=== PATIENT | male | born 1970 | race Caucasian/White ===

== ENCOUNTER 2018-03-04 17:09 | Emergency (ER) | payer OTHER ==
[~2018-03-04] VITALS: Ht 175.3 cm; Wt 98.6 kg
[2018-03-04 17:31] VITALS: BP 175/110
[2018-03-04] MEDS ORDERED: PRED20TA PO (19:57)
[2018-03-04] MEDS ORDERED: LORA1TAB PO (19:58)
[2018-03-04] MEDS ORDERED: acetaminophen 325mg tablet PO ONE (20:00)
--- NOTE | 2018-03-04 20:21 | NUR ---
PT REFUSED SPLINT. DR BANGURA WAS INFORMED , PT HAS A SPLINT AT HOME HE WANTS TO USE .
== END 2018-03-04 20:44 | disposition home or self-care (01) ==
LOC: ER 17:10
DX: S62.316A Displaced fracture of base of fifth metacarpal bone, right hand, initial encounter for closed fracture (principal); D89.89 Other specified disorders involving the immune mechanism, not elsewhere classified; H02.846 Edema of left eye, unspecified eyelid; H02.843 Edema of right eye, unspecified eyelid; Z88.1 Allergy status to other antibiotic agents; W22.8XXA Striking against or struck by other objects, initial encounter; Y93.89 Activity, other specified; Y99.8 Other external cause status; Y92.89 Other specified places as the place of occurrence of the external cause
CPT/HCPCS: 73130; 99283

== ENCOUNTER 2018-04-26 17:50 | Emergency (ER) | payer OTHER ==
[~2018-04-26] VITALS: Ht 172.7 cm; Wt 68.0 kg
[2018-04-26 18:58] LABS: BASOPHILS % (AUTO) 0.3 % (0-1); EOSINOPHILS % (AUTO) 0.1 % (0-6); HEMATOCRIT 31.9 % (42.0-52.0); HEMOGLOBIN 10.3 g/dl (14.0-17.9); LYMPHOCYTES % (AUTO) 14.4 % (21-51); MEAN CORPUSCULAR HEMOGLOBIN 27.9 PG (27.0-31.0); MEAN CORPUSCULAR HGB CONC 32.4 g/dL (33.0-36.5); MEAN CORPUSCULAR VOLUME 86.1 FL (78-98); MEAN PLATELET VOLUME 7.6 FL (7.4-10.4); MONOCYTES # (AUTO) 0.4 X10'3 (0-0.9); MONOCYTES % (AUTO) 5.1 % (2-12); NEUTROPHILS # (AUTO) 5.7 X10'3 (1.8-7.7); NEUTROPHILS % (AUTO) 80.1 % (42-75); PLATELET COUNT 247 X10'3 (140-440); RED BLOOD COUNT 3.71 X10'6 (4.70-6.10); RED CELL DISTRIBUTION WIDTH 14.2 % (11.5-14.5); WHITE BLOOD COUNT 7.1 X10'3 (4.5-11.0)
[2018-04-26 19:35] LABS: ALANINE AMINOTRANSFERASE 23 U/L (12-78); ALBUMIN/GLOBULIN RATIO 0.8 (1.1-1.5); ALKALINE PHOSPHATASE 88 IU/L (46-116); ANION GAP 8 (8-16); ASPARTATE AMINO TRANSFERASE 17 U/L (10-37); BILIRUBIN,TOTAL 0.2 MG/DL (0.1-1.0); BLOOD UREA NITROGEN 16 MG/DL (7-18); BUN/CREATININE RATIO 15.1 (5.4-32.0); CALCIUM 8.7 MG/DL (8.5-10.1); CHLORIDE 103 MMOL/L (99-107); CREATININE 1.06 MG/DL (0.60-1.10); GLUCOSE 201 MG/DL (70-104); POTASSIUM 3.9 MMOL/L (3.5-5.1); SODIUM 139 MMOL/L (135-145); TOTAL CARBON DIOXIDE 28.1 MMOL/L (24-32); TOTAL PROTEIN 6.7 G/DL (6.4-8.2); eGFR 75 ML/MIN
[2018-04-26] MEDS ORDERED: iohexol 350MG/ML 100ml bottle IV ONE (19:45)
[2018-04-26] MEDS ORDERED: famotidine/PF 10 mg/ml inj IV ONE (20:50)
[2018-04-26] MEDS ORDERED: LORazepam 2 mg/ml vial IV ONE (21:05)
[2018-04-26] MEDS ORDERED: PRED5TAB PO (21:16)
[2018-04-26] MEDS ORDERED: GABA-532 PO (21:17)
[2018-04-26] MEDS ORDERED: MULT-1164 PO (21:18)
[2018-04-26] MEDS ORDERED: DICY10CA14 PO (21:21)
[2018-04-26] MEDS ORDERED: ONDA8TAB6 PO (21:22)
[2018-04-26] MEDS ORDERED: TRAZ-218 PO (21:23)
[2018-04-26 21:35] VITALS: BP 150/94
== END 2018-04-26 21:39 | disposition home or self-care (01) ==
LOC: ER 17:51
DX: K44.9 Diaphragmatic hernia without obstruction or gangrene (principal); K86.9 Disease of pancreas, unspecified; F12.90 Cannabis use, unspecified, uncomplicated; Z88.1 Allergy status to other antibiotic agents; Z79.899 Other long term (current) drug therapy
CPT/HCPCS: 36415; 71045; 71275; 80053; 83880; 84484; 85025; 85379; 93005; 96374; 96375; 99284; J2060; J3490; Q9967

== ENCOUNTER 2019-05-15 16:30 | Emergency (ER) | payer OTHER ==
[~2019-05-15] VITALS: Ht 175.3 cm; Wt 60.5 kg
[~2019-05-15 16:30] MED LIST: DICY10CA14 PO; GABA-532 PO; MULT-1164 PO; ONDA8TAB6 PO; PRED5TAB PO; TRAZ-251 PO
[2019-05-15 17:54] LABS: BASOPHILS % (AUTO) 0.3 % (0-1); EOSINOPHILS % (AUTO) 0.1 % (0-6); HEMOGLOBIN 10.6 g/dl (14.0-17.9); LYMPHOCYTES # (AUTO) 0.3 X10'3 (1.1-4.8); LYMPHOCYTES % (AUTO) 2.3 % (21-51); MEAN CORPUSCULAR HGB CONC 32.3 g/dL (33.0-36.5); MEAN CORPUSCULAR VOLUME 74.4 FL (78-98); MEAN PLATELET VOLUME 7.5 FL (7.4-10.4); MONOCYTES # (AUTO) 0.7 X10'3 (0-0.9); MONOCYTES % (AUTO) 4.7 % (2-12); NEUTROPHILS # (AUTO) 12.9 X10'3 (1.8-7.7); NEUTROPHILS % (AUTO) 92.6 % (42-75); PLATELET COUNT 314 X10'3 (140-440); RED BLOOD COUNT 4.43 X10'6 (4.70-6.10); RED CELL DISTRIBUTION WIDTH 17.2 % (11.5-14.5); WHITE BLOOD COUNT 13.9 X10'3 (4.5-11.0)
[2019-05-15 18:07] LABS: ALANINE AMINOTRANSFERASE 12 U/L (12-78); ALBUMIN 3.4 G/DL (3.4-5.0); ALBUMIN/GLOBULIN RATIO 0.9 (1.1-1.5); ALKALINE PHOSPHATASE 95 IU/L (46-116); ANION GAP 8 (8-16); ASPARTATE AMINO TRANSFERASE 20 U/L (10-37); BILIRUBIN,TOTAL 0.4 MG/DL (0.1-1.0); BLOOD UREA NITROGEN 26 MG/DL (7-18); BUN/CREATININE RATIO 18.6 (5.4-32.0); CALCIUM 8.9 MG/DL (8.5-10.1); CHLORIDE 99 MMOL/L (99-107); GLUCOSE 187 MG/DL (70-104); POTASSIUM 4.4 MMOL/L (3.5-5.1); SODIUM 135 MMOL/L (135-145); TOTAL CARBON DIOXIDE 27.9 MMOL/L (24-32); TOTAL PROTEIN 7.4 G/DL (6.4-8.2); eGFR 54 ML/MIN
[2019-05-15 18:15] LABS: PARTIAL THROMBOPLASTIN TIME 20 SECONDS (22-32)
[2019-05-15] MEDS ORDERED: proCHLORperazine 10 MG/2 ml inj IV ONE (18:25)
[2019-05-15] MEDS ORDERED: normal saline 1000ML IV soln IVB ONE (18:25)
[2019-05-15 18:45] LABS: LIPASE 94 U/L (73-393)
[2019-05-15] MEDS ORDERED: mupirocin 2% ointment 22GM TP STA (19:51)
[2019-05-15] MEDS ORDERED: ONDA4TAB6 PO (20:19)
[2019-05-15 20:30] LABS: CLARITY,URINE CLEAR (Clear); COLOR,URINE YELLOW (Yellow); GLUCOSE, URINE NEGATIVE (Neg); KETONES,URINE TRACE mg/dl (Neg); LEUKOCYTE ESTERASE ,URINE NEGATIVE (Neg); NITRITES, URINE NEGATIVE (Neg); OCCULT BLOOD,URINE LARGE (Neg); PROTEIN,URINE 100 mg/dl (Neg)
[2019-05-15] MEDS ORDERED: acetaminophen 325mg tablet PO ONE (20:30)
[2019-05-15 20:42] LABS: UA COLLECTION TYPE URINAL
[2019-05-15 20:43] LABS: BACTERIA,URINE NONE SEEN /HPF (Neg); SQUAMOUS EPITHELIAL CELL,UR FEW /LPF (FEW); WBC,URINE NONE SEEN /HPF (0-4)
[2019-05-15 21:06] LABS: URINE AMPHETAMINE SCREEN NEGATIVE (Neg); URINE BARBITUATE SCREEN NEGATIVE (Neg); URINE BENZODIAZEPINES SCREEN NEGATIVE (Neg); URINE CANNABINOID SCREEN POSITIVE (Neg); URINE COCAINE SCREEN NEGATIVE (Neg); URINE METHADONE SCREEN NEGATIVE (Neg); URINE OPIATE SCREEN POSITIVE (Neg); URINE PHENCYCLIDINE SCREEN NEGATIVE (Neg)
[2019-05-15] MEDS ORDERED: VANCOMYCIN 1gm/H2O 200ml PB 200 ML IV ONE (21:35)
[2019-05-15] MEDS ORDERED: normal saline 1000ML IV soln IV ONE (21:35)
[2019-05-15] MEDS ORDERED: piperacillin/tazo 3.375gm/50ml 50 ML IV ONE (21:35)
[2019-05-15] MEDS ORDERED: iohexol 300mg/ml 100ml inj. ONE (21:42)
[2019-05-15] MEDS: morphine 2 MG/ML inj. syringe IV PRN (22:14)
[2019-05-15] MEDS ORDERED: OMEP40CA13 PO (22:26)
[2019-05-15] MEDS ORDERED: LEVO5TAB13 PO (22:29)
[2019-05-16] MEDS: morphine 2 MG/ML inj. syringe IV PRN ×3 (00:38→03:05)
--- NOTE | 2019-05-16 02:21 | NUR ---
Dr Bean states he is not admitting the patient that the patient needs to go to an ENT specialist.
[2019-05-16 03:17] VITALS: BP 147/85
== END 2019-05-16 03:24 | disposition short-term general hospital (02) ==
LOC: ER 16:32
DX: L03.221 Cellulitis of neck (principal); R11.2 Nausea with vomiting, unspecified; D72.829 Elevated white blood cell count, unspecified; F12.90 Cannabis use, unspecified, uncomplicated; Z72.89 Other problems related to lifestyle; Z88.1 Allergy status to other antibiotic agents; Z79.899 Other long term (current) drug therapy; R79.1 Abnormal coagulation profile
CPT/HCPCS: 36415; 70491; 71045; 80053; 80305; 81001; 83690; 84145; 85025; 85610; 85730; 87040; 93005; 96361; 96365; 96366; 96368; 96375; 96376; 99285; J0780; J2270; J2543; J3370; J7030; Q9967